=== PATIENT | female | born 1940 | race Caucasian/White ===

== ENCOUNTER 2020-06-23 22:34 | IRF | payer MEDICARE, OTHER, SELFPAY ==
--- NOTE | 2020-06-23 19:37 | ADMGEN ---
This patient, Yodit Campbell, was admitted to [facility] Room 225-02. Patient/family oriented to hospital policies and general routines including ID bracelet, bed and alarms, visiting hours, pain management, procedures, bathroom and other care routines, personal items, smoking policy, room service/diet, and visiting hours. Information on how to activate the Rapid Response Team has been discussed. Patient/Family are encouraged to report perceived risks to care and to ask questions if they do not understand what they are told or what they should do.
[2020-06-24 00:30] VITALS: PULSE 72
[2020-06-24] MEDS: carvediloL 12.5 MG TABLET PO ×3 (00:30→20:25)
[2020-06-24 00:54] LABS: Glucose Point of Care 110 (65-105)
[2020-06-24 04:24] VITALS: BMI 38.5
[2020-06-24 05:07] VITALS: BP 153/55; PULSE 71; RESP 20; TEMP 36.8; O2SAT 98
[2020-06-24 05:42] LABS: Basophils Percent Auto 0.4 % (0.2-1.2); Eosinophils Absolute Auto 0.2 K/mm3 (0-0.3); Eosinophils Percent Auto 1.7 % (0-4.4); Hematocrit 27.9 % (37.0-47.0); Immature Granulocyte Absolute 0.17 K/mm3 (0.00-0.031); Immature Granulocyte Percent A 1.6 % (0-0.5); Lymphocytes Absolute Auto 1.44 K/mm3 (0.9-3.2); Lymphocytes Percent Auto 13.5 % (18.3-44.2); Mean Corpuscular HGB Conc 32.3 g/dl (32-36); Mean Corpuscular Hemoglobin 31.3 pg (26-34); Mean Corpuscular Volume 96.9 fl (80-100); Mean Platelet Volume 9.8 fl (7.4-10.4); Monocytes Percent Auto 9.1 % (2.6-8.5); Neutrophils Absolute Auto 7.9 K/mm3 (1.3-6.7); Neutrophils Percent Auto 73.7 % (45.5-73.1); Platelet Count Result 283 k/mm3 (150-375); Red Blood Count 2.88 M/mm3 (4.2-5.4); Red Cell Distribution Width 12.3 % (11.5-14.5); White Blood Count 10.7 K/mm3 (4.5-10.0)
[2020-06-24 05:45] LABS: Anion Gap 1 mmol/L (8-16); Blood Urea Nitrogen 27 mg/dL (7-17); Calcium 8.4 mg/dL (8.4-10.2); Carbon Dioxide 30 mmol/L (22-30); Chloride 105 mmol/L (98-107); Estimated CRCL calculation 41 ml/min; Estimated Glomerular Filt Rate 43; Glucose 133 mg/dL (65-105); Potassium 4.5 mmol/L (3.4-5.0); Sodium 136 mmol/L (137-145)
[2020-06-24 06:19] LABS: Hemoglobin A1C 6.4 % (<5.7)
[2020-06-24 06:42] LABS: Glucose Point of Care 128 (65-105)
[2020-06-24] MEDS: calcitrioL 0.25 MCG CAPSULE PO (08:10)
[2020-06-24] MEDS: hydrALAZINE HCL 50 MG TABLET PO ×3 (08:11→17:25)
[2020-06-24] MEDS: MULTIVITAMINS THERAPEUTIC TAB (*BKC) 1 TABLET PO (08:11)
[2020-06-24] MEDS: lisinopriL 20 MG TABLET PO (08:11)
[2020-06-24] MEDS: VITAMIN B COMPLEX CAPSULE 1 CAP PO (08:11)
[2020-06-24] MEDS: MAGNESIUM OXIDE 400 MG TABLET PO (08:11)
[2020-06-24] MEDS: TAMSULOSIN HCL 0.4 MG CAPSULE PO (08:11)
[2020-06-24 08:12] VITALS: PULSE 72
[2020-06-24] MEDS: ENOXAPARIN 40 MG/0.4 ML SYRINGE SUB-Q (08:12)
[2020-06-24] MEDS: SENNA/DOCUSATE SODIUM TABLET 1 TAB PO (08:15)
[2020-06-24] MEDS: ACETAMINOPHEN 325 MG TABLET 650 MG PO ×2 (08:23→22:29)
[2020-06-24] MEDS: CITALOPRAM HYDROBROMIDE 20 MG TABLET PO (12:19)
[2020-06-24 12:28] LABS: Glucose Point of Care 184 (65-105)
[2020-06-24 14:00] VITALS: BP 151/59; PULSE 97; RESP 20; TEMP 36.6; O2SAT 97; BMI 38.5
--- NOTE | 2020-06-24 14:04 | RPD ---
INDIVIDUALIZED PLAN OF CARE FOR Yodit Campbell Brief Synthesis of Pre-Admission Screen, Post-Admission Evaluation and Therapy Evaluations: The patient presents to rehab with spinal stenosis of lumbar region with neurogenic claudication. Comorbidities include bilateral lower extremity weakness, degenerative disc disease of lumbar spine, foraminal stenosis of lumbar spine, facet arthropathy of lumbar spine, lumbar spine instability, sacroiliitis, lumbar radiculopathy, synovial cyst of lumbar spine, stenosis of lateral recess of lumbar spine, arthritis, CHF, depression, diabetes mellitus type 2, disease of thyroid gland non-cancerous, dyspnea on exertion, GERD, heart mumur, hyperlipidemia, hypertension, hx lymphoma 06/2019 with s/p radiation completed 08/2019, obesity, JUSTIN with CPAP, pulmonary valve disease, renal insufficiency, post-operative pain, acute blood loss anemia, hyponatremia, hyperkalemia, urinary retention, acute on chronic kidney injury, leukocytosis, dyspnea on exertion, hypotension, poor appetite, hypocalcemia, and orthostatic hypotension. The complexity of the patient's medical management, nursing, and therapy needs require an inpatient rehab hospital stay with a physician-led interdisciplinary team approach. The patient?s needs will be best met in an intensive program vs. at a lower level of care. The patient requires physician services for neurology services, medical oversight, and coordination of care. The patient needs physician monitoring and treatment of postoperative complications of post-operative pain, bilateral lower extremity weakness, hyponatremia, hyperkalemia, urinary retention, acute on chronic kidney injury, leukocytosis, hypocalcemia, acute blood loss anemia, hypotension, poor appetite, dyspnea on exertion, orthostatic hypotension, monitoring for adverse reactions to new medications, and monitoring of infection. The patient requires nursing services for frequent neuro checks, anticoagulation therapy, medication management and education, pressure relief and skin care management, monitoring of labs, bowel and bladder training, diabetes management and education, and fall/safety precautions. Deficits include:ADLs, Balance, Endurance, Family Training/Education, Mobility, Pain Management, ROM, Safety, Strength, and Transfers. Asbestos Brake Lining Finisher Helper/Case Management for: Discharge Planning and Patient/Family Counseling Physical Therapy: 5 days per week for 90 minutes. Treatments may include: Therapeutic Exercise, Gait Training, Neuromuscular Re-education, Transfer Training, Community Reintegration, Bed Mobility, Patient/Family Education, Wheelchair Mobility Group Therapy/Concurrent Therapy Rationales: -Improve attention span during functional activities in a distracted environment. -Enhance problem solving and/or adequate judgment skills during functional activities in a distracted environment. -Promote increased safety awareness in a distracted environment to reduce fall risk with functional tasks, transfers, and ambulation to allow a more safe, self-sufficient return to the home environment. -Improve dynamic balance skills to promote safety and independence with functional activities in a distracted environment for maximum gain. Occupational Therapy: 5 days per week for 90 minutes. Treatments may include: Therapeutic Exercise, Therapeutic Activity, Cognitive Training, Self-Care Transfer Training, Community Reintegration, Home Management, Patient/Family Education, Wheelchair Mobility Training, Energy Conservation Training Group Therapy/Concurrent Therapy Rationales: -Allow therapist to observe and teach generalization and carry-over of skills learned in individual therapy. -Enhance problem solving and sequencing skills during therapeutic activities in a distracted environment. -Promote increased safety awareness in a realistic setting to reduce fall risk with functional tasks due to visual and verbal distractions. -Increase functional level with ADLs,
--- NOTE | 2020-06-24 14:31 | PCNSR ---
On 06/24/20, the student, Meg Mott, provided care and completed [facility] documentation on this patient. I have reviewed the student's documentation and agree with the findings.
[2020-06-24 17:01] LABS: Glucose Point of Care 179 (65-105)
[2020-06-24] MEDS: INSULIN GLARGINE (*BKC) 100 UNITS/ML 25 UNITS SUB-Q (17:26)
--- NOTE | 2020-06-24 17:56 | WPDREHABHP ---
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 patient was seen [id number] at 5:30 a.m. on June 24, 2020. History of the present illness .79 years old right-handed female with past medical history of arthritis, obesity and renal insufficiency presented to [facility] on June 16, 2020 with low back pain and right leg pain. Patient reported experiencing back pain for approximately 6 weeks. The pain on the right side of her lower back radiating into her right buttocks and down the lateral side of the right lower extremity stopping at the ankle. MRI revealed L4 through 5 severe canal stenosis and diffuse disc bulge with focal posterior central disc extrusion in addition to the right-sided synovial cyst and bilateral facet effusion. Neurosurgery was consulted and given the failure of conservative treatment, surgical intervention was recommended. On June 06, 2020 the patient underwent L4-5 oblique lateral interbody fusion, allograft bone morphogenic protein, internal fixation with anterior lumbar plate L4 and L5 posterior fixation with pedicle screw and karishma, L4 total laminectomy, synovial cyst resection . The patient reported improvement in pain after surgery with analgesics. On 06/19 the patient's leg buckled while ambulating with nursing staff who assisted patient to the floor. No injury reported the patient was issued a LS to be used times when mobilizing. Postoperative complications included postoperative pain, bilateral lower extremity weakness, hyponatremia, hyperkalemia, urinary retention, acute on chronic kidney injury, leukocytosis, hypocalcemia, acute blood loss anemia, hypertension, poor appetite, dyspnea on exertion, and Orthostatic hypotension. The patient had an indwelling Choudhury catheter due to urinary retention, which was removed on 06/22, the patient is urinating without difficulty. The patient does have a history of chronic kidney disease and have elevated BUN and creatinine postoperatively, suspected related to acute tubular necrosis, hypertension and urinary retention. Creatinine down to 1.2 on 06/23, package handler signed off for patients to [place]. Patient is awake alert oriented x4 she was discharged to [facility] on enoxaparin 40 mg daily for DVT prophylaxis for duration of 2 weeks the patient has not traveled outside the [place] or had contact with someone who is ill, that as traveled outside the [place] in the past 21 days. The patient has not traveled to an area of the [place] that is experiencing known transmission of the Coronavirus and has not had close personal contact with anyone and that has. The patient does not have fever the patient is not experiencing lower respiratory illness symptom. The patient does, however have sleep apnea requiring CPAP use at baseline. the patient tested negative for COVID on June 13, 2020 therapy was initiated at the acute care facility and the patient was transferred to us from [facility] on June 23, 2020 [facility] Family History Family History Father Acute myocardial infarction Mother Diabetes mellitus Sibling Diabetes mellitus Sibling Acute myocardial infarction Social History Social History Smoking status: Former smoker Tobacco type: cigarettes Alcohol intake: current Drinks per week: 1 Substance use: never Gender identity (if verbalized by the patient): Female Spiritual care concerns: No Meds Home Medications and Allergies Home Medications Medication Instructions Recorded Confirmed Type Adult One Daily Multivitamin 1 tablet PO DAILY 06/23/20 06/23/20 His
[2020-06-24 20:25] VITALS: PULSE 68
[2020-06-24 20:31] VITALS: BP 143/50; PULSE 68; RESP 20; TEMP 36.6; O2SAT 99
[2020-06-24 20:39] LABS: Glucose Point of Care 185 (65-105)
[2020-06-25 05:18] VITALS: BP 142/43; PULSE 59; RESP 20; TEMP 36.6; O2SAT 98
[2020-06-25] MEDS: ALENDRONATE SODIUM 70 MG TABLET PO (05:57)
[2020-06-25 06:41] LABS: Glucose Point of Care 76 (65-105)
[2020-06-25 09:04] VITALS: PULSE 59
[2020-06-25] MEDS: carvediloL 12.5 MG TABLET PO ×2 (09:04→20:54)
[2020-06-25] MEDS: CHOLECALCIFEROL 400 UNITS TABLET (VIT D) 800 UNITS PO (09:04)
[2020-06-25] MEDS: calcitrioL 0.25 MCG CAPSULE PO (09:04)
[2020-06-25] MEDS: lisinopriL 20 MG TABLET PO (09:05)
[2020-06-25] MEDS: CITALOPRAM HYDROBROMIDE 20 MG TABLET PO (09:05)
[2020-06-25] MEDS: ENOXAPARIN 40 MG/0.4 ML SYRINGE SUB-Q (09:05)
[2020-06-25] MEDS: VITAMIN B COMPLEX CAPSULE 1 CAP PO (09:05)
[2020-06-25] MEDS: hydrALAZINE HCL 50 MG TABLET PO ×3 (09:05→18:10)
[2020-06-25] MEDS: MULTIVITAMINS THERAPEUTIC TAB (*BKC) 1 TABLET PO (09:05)
[2020-06-25] MEDS: TAMSULOSIN HCL 0.4 MG CAPSULE PO (09:05)
[2020-06-25] MEDS: MAGNESIUM OXIDE 400 MG TABLET PO (09:05)
[2020-06-25 12:22] LABS: Glucose Point of Care 126 (65-105)
--- NOTE | 2020-06-25 13:54 | PC.NURSE ---
Dr. Elliott's office called and patient needs to be seen for a incision check no later than Jul.02 at 12:40; she had an appointment for , but unable to make that time, so have rescheduled for the Jul.02 appointment.
[2020-06-25 14:00] VITALS: BP 161/89; PULSE 68; RESP 20; TEMP 36.9; O2SAT 95
[2020-06-25 16:44] LABS: Glucose Point of Care 149 (65-105)
--- NOTE | 2020-06-25 17:50 | WPDNEURORHBP ---
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, status post surgical intervention for spinal stenosis involved in the physical therapy and occupational therapy Review of Systems Review of Systems: All systems reviewed & are unremarkable except as noted in HPI and below Functional Status Ambulation Ability Ability to Ambulate 10 Feet: Contact Guard Ability to Ambulate 50 Feet With 2 Turns: Contact Guard Ability to Ambulate 150 Feet: Contact Guard Ambulation Assistive Devices: Walker, Wheeled Transfers Ability Ability to Transfer In/Out of Chair: Moderate Assistance X 1 Exam Narrative: Exam Narrative: on examination awake alert in no acute distress,, heart regular, lungs clear, abdomen is soft, normal bowel sounds, lungs clear ,heart regular with no murmur ,neuro essentially unchanged Objective Data Vital Signs Vital Signs: Vital Signs - 24 hr 06/24/20 20:25 06/24/20 20:31 06/25/20 05:18 Temperature 36.6 C 36.6 C Pulse Rate 68 68 59 L Respiratory Rate 20 20 Blood Pressure 143/50 H 142/43 H Pulse Oximetry 99 98 06/25/20 09:04 06/25/20 14:00 Temperature 36.9 C Pulse Rate 59 L 68 Respiratory Rate 20 Blood Pressure 161/89 H Pulse Oximetry 95 Intake/Output Intake/Output: Intake & Output 06/22/20 06/23/20 06/24/20 06/25/20 23:59 23:59 23:59 23:59 Intake Total 720 480 Balance 720 480 Meds/Results Medications: Active Medications Generic Name Dose Route Start Last Admin Trade Name Freq PRN Reason Stop Dose Admin Acetaminophen 650 mg 06/24/20 00:20 06/24/20 22:29 Acetaminophen 325 Mg Tablet PO 650 mg Q6H PRN Administration Mild Pain (1-3) or Fever Hydrocodone Bitart/Acetaminophen 1 tab 06/23/20 22:40 Hydrocodone/Acetaminophen (*Crx) 5-325 Mg Tablet PO Q4H PRN Pain (Scale Score 4-6) Hydrocodone Bitart/Acetaminophen 2 tab 06/23/20 22:40 Hydrocodone/Acetaminophen (*Crx) 5-325 Mg Tablet PO Q4H PRN Pain (Scale Score 7-10) Alendronate Sodium 70 mg 06/25/20 06:30 06/25/20 05:57 Alendronate Sodium 70 Mg Tablet PO 70 mg We@0630 CHRISTINE Administration Calcitriol 0.25 mcg 06/24/20 09:00 06/25/20 09:04 Calcitriol 0.25 Mcg Capsule PO 0.25 mcg DAILY CHRISTINE Administration Carvedilol 12.5 mg 06/23/20 23:10 06/25/20 09:04 Carvedilol 12.5 Mg Tablet PO 12.5 mg Q12HR CHRISTINE Administration Citalopram Hydrobromide 20 mg 06/24/20 09:00 06/25/20 09:05 Citalopram Hydrobromide 20 Mg Tablet PO 20 mg DAILY CHRISTINE Administration Dextrose 12.5 gm 06/23/20 22:48 Dextrose 50% 25 Gm/50 Ml Syringe IV PUSH PRN PRN Hypoglycemia Protocol Diazepam 5 mg 06/23/20 22:40 Diazepam (*Crx) 5 Mg Tablet PO 07/23/20 22:41 TID PRN Muscle Spasm Enoxaparin Sodium 40 mg 06/24/20 09:00 06/25/20 09:05 Enoxaparin 40 Mg/0.4 Ml Syringe SUB-Q 40 mg DAILY CHRISTINE Administration Glucagon 1 mg 06/23/20 22:48 Glucagon For Inj 1 Mg Vial IM PRN PRN Hypoglycemia Protocol Glucose 15 gm 06/23/20 22:48 Glucose Oral Gel 15 Gm Of Glucse In 37.5 Gm Tube PO PRN PRN Hypoglycemia Protocol Hydralazine HCl 50 mg 06/24/20 09:00 06/25/20 12:18 Hydralazine Hcl 50 Mg Tablet PO 07/24/20 09:01 50 mg TID CHRISTINE Administration Dextrose 1,000 mls @ 100 mls/hr 06/23/20 22:48 Dextrose 5% 1,000 Ml IVPB PRN PRN Hypoglycemia Protocol Insulin Glargine 25 units 06/24/20 18:00 06/24/20 17:26 Insulin Glargine (*Bkc) 100 Units/Ml SUB-Q 25 units QPM CHRISTINE Administration Lisinopril 20 mg 06/24/20 09:00 06/25/20 09:05 Lisinopril 20 Mg Tablet PO 20 mg DAILY CHRISTINE Administration Magnesium Oxide 400 mg 06/24/20 09:00 06/25/20 09:05 Magnesium Oxide 400 Mg Tablet PO 400 mg DAILY CHRISTINE Administration Multivitamins Therapeutic 1 tablet 06/24/20 09:00 06/25/20 09:05 Multivitamins Therapeuti
[2020-06-25] MEDS: INSULIN GLARGINE (*BKC) 100 UNITS/ML 25 UNITS SUB-Q (18:10)
[2020-06-25 20:54] VITALS: PULSE 66
[2020-06-25] MEDS: ACETAMINOPHEN 325 MG TABLET 650 MG PO (20:55)
[2020-06-25 22:00] VITALS: BP 154/65; PULSE 66; RESP 18; TEMP 36.7; O2SAT 96
[2020-06-25 22:31] LABS: Glucose Point of Care 200 (65-105)
[2020-06-26 06:00] VITALS: BP 152/63; PULSE 65; RESP 18; TEMP 36.3; O2SAT 100
[2020-06-26 06:47] LABS: Glucose Point of Care 84 (65-105)
[2020-06-26 09:36] VITALS: PULSE 65
[2020-06-26] MEDS: calcitrioL 0.25 MCG CAPSULE PO (09:36)
[2020-06-26] MEDS: carvediloL 12.5 MG TABLET PO ×2 (09:36→20:41)
[2020-06-26] MEDS: VITAMIN B COMPLEX CAPSULE 1 CAP PO (09:37)
[2020-06-26] MEDS: ENOXAPARIN 40 MG/0.4 ML SYRINGE SUB-Q (09:37)
[2020-06-26] MEDS: hydrALAZINE HCL 50 MG TABLET PO ×3 (09:37→18:06)
[2020-06-26] MEDS: CITALOPRAM HYDROBROMIDE 20 MG TABLET PO (09:37)
[2020-06-26] MEDS: CHOLECALCIFEROL 400 UNITS TABLET (VIT D) 800 UNITS PO (09:37)
[2020-06-26] MEDS: TAMSULOSIN HCL 0.4 MG CAPSULE PO (09:38)
[2020-06-26] MEDS: lisinopriL 20 MG TABLET PO (09:38)
[2020-06-26] MEDS: MULTIVITAMINS THERAPEUTIC TAB (*BKC) 1 TABLET PO (09:38)
[2020-06-26] MEDS: MAGNESIUM OXIDE 400 MG TABLET PO (09:38)
[2020-06-26 11:56] LABS: Glucose Point of Care 127 (65-105)
[2020-06-26 14:00] VITALS: BP 147/50; PULSE 70; RESP 18; TEMP 36.9; O2SAT 95
--- NOTE | 2020-06-26 16:13 | PCPTNOTE ---
Yodit Campbell was evaluated for a wheeled walker on 06/26/2020 by this physical therapist laboratory chemical assistant. The wheeled walker will resolve patient's mobility limitations and will be used for ADL's within the home. The patient can safely use the wheeled walker. ?The wheeled walker will resolve the patient?s mobility deficits, including decreased strength, endurance, balance. Bertha Zuniga, GHOST WRITER 06/26/20 16:14
[2020-06-26 17:27] LABS: Glucose Point of Care 170 (65-105)
[2020-06-26] MEDS: INSULIN GLARGINE (*BKC) 100 UNITS/ML 25 UNITS SUB-Q (18:05)
[2020-06-26 20:41] VITALS: PULSE 88
[2020-06-26] MEDS: ACETAMINOPHEN 325 MG TABLET 650 MG PO (20:41)
[2020-06-26 21:05] VITALS: BP 148/78; PULSE 88; RESP 18; TEMP 36.8; O2SAT 97
[2020-06-26 22:32] LABS: Glucose Point of Care 149 (65-105)
[2020-06-27] VITALS (7 sets, daily range): BP systolic 125–143; BP diastolic 47–63; PULSE 63–89; RESP 19–20; TEMP 36.4–36.9; O2SAT 91–99
[2020-06-27 06:54] LABS: Glucose Point of Care 70 (65-105)
[2020-06-27 06:54] LABS: Glucose Point of Care 99 (65-105)
[2020-06-27] MEDS: carvediloL 12.5 MG TABLET PO ×2 (09:38→19:33)
[2020-06-27] MEDS: calcitrioL 0.25 MCG CAPSULE PO (09:38)
[2020-06-27] MEDS: CHOLECALCIFEROL 400 UNITS TABLET (VIT D) 800 UNITS PO (09:38)
[2020-06-27] MEDS: CITALOPRAM HYDROBROMIDE 20 MG TABLET PO (09:38)
[2020-06-27] MEDS: VITAMIN B COMPLEX CAPSULE 1 CAP PO (09:39)
[2020-06-27] MEDS: hydrALAZINE HCL 50 MG TABLET PO ×3 (09:39→17:05)
[2020-06-27] MEDS: TAMSULOSIN HCL 0.4 MG CAPSULE PO (09:39)
[2020-06-27] MEDS: MAGNESIUM OXIDE 400 MG TABLET PO (09:39)
[2020-06-27] MEDS: ENOXAPARIN 40 MG/0.4 ML SYRINGE SUB-Q (09:39)
[2020-06-27] MEDS: lisinopriL 20 MG TABLET PO (09:39)
[2020-06-27] MEDS: MULTIVITAMINS THERAPEUTIC TAB (*BKC) 1 TABLET PO (09:39)
[2020-06-27 12:20] LABS: Glucose Point of Care 93 (65-105)
--- NOTE | 2020-06-27 13:29 | WPDNEURORHBP ---
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 She has involving the physical therapy able to ambulate up to 150ft with contact guard using a wheeled walker able to transfer in and out of chair with moderate assistance of 1 Review of Systems Review of Systems: All systems reviewed & are unremarkable except as noted in HPI and below ROS unobtainable: Yes unobtainable due to endotracheal tube Functional Status Ambulation Ability Ability to Ambulate 10 Feet: Standby Assistance Ability to Ambulate 50 Feet With 2 Turns: Standby Assistance Ability to Ambulate 150 Feet: Standby Assistance Ambulation Assistive Devices: Walker, Wheeled Transfers Ability Ability to Transfer In/Out of Chair: Standby Assistance Exam Narrative: Exam Narrative: on examination she is awake alert has no specific complaints ear nose throat examination normal mucous membranes are moist obvious drainage from the nose heart regular with no murmur lungs clear to auscultation no rhonchi or crepitations abdomen is soft normal bowel sounds nontender neurological examination unchanged Objective Data Vital Signs Vital Signs: Vital Signs - 24 hr 06/26/20 14:00 06/26/20 20:41 06/26/20 21:05 Temperature 36.9 C 36.8 C Pulse Rate 70 88 88 Respiratory Rate 18 18 Blood Pressure 147/50 H 148/78 H Pulse Oximetry 95 97 06/27/20 05:14 06/27/20 09:38 Temperature 36.4 C L Pulse Rate 63 63 Respiratory Rate 20 Blood Pressure 125/47 L Pulse Oximetry 99 Intake/Output Intake/Output: Intake & Output 06/24/20 06/25/20 06/26/20 06/27/20 23:59 23:59 23:59 23:59 Intake Total 720 720 960 240 Balance 720 720 960 240 Meds/Results Medications: Active Medications Generic Name Dose Route Start Last Admin Trade Name Freq PRN Reason Stop Dose Admin Acetaminophen 650 mg 06/24/20 00:20 06/26/20 20:41 Acetaminophen 325 Mg Tablet PO 650 mg Q6H PRN Administration Mild Pain (1-3) or Fever Hydrocodone Bitart/Acetaminophen 1 tab 06/23/20 22:40 Hydrocodone/Acetaminophen (*Crx) 5-325 Mg Tablet PO Q4H PRN Pain (Scale Score 4-6) Hydrocodone Bitart/Acetaminophen 2 tab 06/23/20 22:40 Hydrocodone/Acetaminophen (*Crx) 5-325 Mg Tablet PO Q4H PRN Pain (Scale Score 7-10) Alendronate Sodium 70 mg 06/25/20 06:30 06/25/20 05:57 Alendronate Sodium 70 Mg Tablet PO 70 mg We@0630 CHRISTINE Administration Calcitriol 0.25 mcg 06/24/20 09:00 06/27/20 09:38 Calcitriol 0.25 Mcg Capsule PO 0.25 mcg DAILY CHRISTINE Administration Carvedilol 12.5 mg 06/23/20 23:10 06/27/20 09:38 Carvedilol 12.5 Mg Tablet PO 12.5 mg Q12HR CHRISTINE Administration Citalopram Hydrobromide 20 mg 06/24/20 09:00 06/27/20 09:38 Citalopram Hydrobromide 20 Mg Tablet PO 20 mg DAILY CHRISTINE Administration Dextrose 12.5 gm 06/23/20 22:48 Dextrose 50% 25 Gm/50 Ml Syringe IV PUSH PRN PRN Hypoglycemia Protocol Diazepam 5 mg 06/23/20 22:40 Diazepam (*Crx) 5 Mg Tablet PO 07/23/20 22:41 TID PRN Muscle Spasm Enoxaparin Sodium 40 mg 06/24/20 09:00 06/27/20 09:39 Enoxaparin 40 Mg/0.4 Ml Syringe SUB-Q 40 mg DAILY CHRISTINE Administration Glucagon 1 mg 06/23/20 22:48 Glucagon For Inj 1 Mg Vial IM PRN PRN Hypoglycemia Protocol Glucose 15 gm 06/23/20 22:48 Glucose Oral Gel 15 Gm Of Glucse In 37.5 Gm Tube PO PRN PRN Hypoglycemia Protocol Hydralazine HCl 50 mg 06/24/20 09:00 06/27/20 09:39 Hydralazine Hcl 50 Mg Tablet PO 07/24/20 09:01 50 mg TID CHRISTINE Administration Dextrose 1,000 mls @ 100 mls/hr 06/23/20 22:48 Dextrose 5% 1,000 Ml IVPB PRN PRN Hypoglycemia Protocol Insulin Glargine 20 units 06/27/20 18:00 Insulin Glargine (*Bkc) 100 Units/Ml SUB-Q
[2020-06-27] MEDS: PANTOPRAZOLE SOD SESQUIHYDRATE 20 MG TAB PO (17:03)
[2020-06-27 17:14] LABS: Glucose Point of Care 110 (65-105)
[2020-06-27] MEDS: INSULIN GLARGINE (*BKC) 100 UNITS/ML 20 UNITS SUB-Q (18:06)
[2020-06-27] MEDS: ACETAMINOPHEN 325 MG TABLET 650 MG PO (19:32)
[2020-06-27 21:07] LABS: Glucose Point of Care 143 (65-105)
[2020-06-28] MEDS: ACETAMINOPHEN 325 MG TABLET 650 MG PO ×2 (05:52→18:26)
[2020-06-28 06:00] VITALS: BP 128/61; PULSE 65; RESP 20; TEMP 36.5; O2SAT 98
[2020-06-28 06:29] LABS: Glucose Point of Care 67 (65-105)
[2020-06-28 07:24] LABS: Glucose Point of Care 97 (65-105)
[2020-06-28 09:24] VITALS: PULSE 65
[2020-06-28] MEDS: carvediloL 12.5 MG TABLET PO ×2 (09:24→20:08)
[2020-06-28] MEDS: calcitrioL 0.25 MCG CAPSULE PO (09:24)
[2020-06-28] MEDS: CHOLECALCIFEROL 400 UNITS TABLET (VIT D) 800 UNITS PO (09:24)
[2020-06-28] MEDS: MAGNESIUM OXIDE 400 MG TABLET PO (09:25)
[2020-06-28] MEDS: PANTOPRAZOLE SOD SESQUIHYDRATE 20 MG TAB PO (09:25)
[2020-06-28] MEDS: CITALOPRAM HYDROBROMIDE 20 MG TABLET PO (09:25)
[2020-06-28] MEDS: lisinopriL 20 MG TABLET PO (09:25)
[2020-06-28] MEDS: TAMSULOSIN HCL 0.4 MG CAPSULE PO (09:25)
[2020-06-28] MEDS: MULTIVITAMINS THERAPEUTIC TAB (*BKC) 1 TABLET PO (09:25)
[2020-06-28] MEDS: hydrALAZINE HCL 50 MG TABLET PO ×3 (09:26→17:16)
[2020-06-28] MEDS: VITAMIN B COMPLEX CAPSULE 1 CAP PO (09:26)
[2020-06-28] MEDS: ENOXAPARIN 40 MG/0.4 ML SYRINGE SUB-Q (09:26)
[2020-06-28 12:08] LABS: Glucose Point of Care 92 (65-105)
[2020-06-28 14:00] VITALS: BP 141/57; PULSE 80; RESP 20; TEMP 36.9; O2SAT 95
[2020-06-28 17:25] LABS: Glucose Point of Care 103 (65-105)
[2020-06-28] MEDS: INSULIN GLARGINE (*BKC) 100 UNITS/ML 20 UNITS SUB-Q (18:26)
[2020-06-28 20:08] VITALS: PULSE 80
[2020-06-28 20:53] LABS: Glucose Point of Care 155 (65-105)
[2020-06-28 22:00] VITALS: BP 158/70; PULSE 71; RESP 17; TEMP 36.4; O2SAT 99
[2020-06-29] VITALS (7 sets, daily range): BP systolic 144–155; BP diastolic 55–89; PULSE 64–73; RESP 19–20; TEMP 36.1–37.1; O2SAT 95–98
[2020-06-29] MEDS: ACETAMINOPHEN 325 MG TABLET 650 MG PO ×2 (00:51→20:18)
--- NOTE | 2020-06-29 01:08 | PC.NURSE ---
Daylight Savings Time For Daylight Savings Time Ending in the Fall - Clocks are moved back. For Daylight Savings Time Beginning in the Spring - Clocks are moved ahead. For [facility], the time of change occurs at 0200 hrs. Time is taken from the artillery or naval gunfire observer. This entry on the patient's chart recognizes the change in time reflected during documentation. Example: 2 entries for vital signs may be charted for 0200 hrs.
[2020-06-29 06:59] LABS: Glucose Point of Care 88 (65-105)
[2020-06-29] MEDS: calcitrioL 0.25 MCG CAPSULE PO (08:25)
[2020-06-29] MEDS: carvediloL 12.5 MG TABLET PO ×2 (08:25→20:14)
[2020-06-29] MEDS: lisinopriL 20 MG TABLET PO (08:26)
[2020-06-29] MEDS: hydrALAZINE HCL 50 MG TABLET PO ×3 (08:26→16:38)
[2020-06-29] MEDS: CITALOPRAM HYDROBROMIDE 20 MG TABLET PO (08:26)
[2020-06-29] MEDS: CHOLECALCIFEROL 400 UNITS TABLET (VIT D) 800 UNITS PO (08:26)
[2020-06-29] MEDS: ENOXAPARIN 40 MG/0.4 ML SYRINGE SUB-Q (08:26)
[2020-06-29] MEDS: PANTOPRAZOLE SOD SESQUIHYDRATE 20 MG TAB PO (08:27)
[2020-06-29] MEDS: VITAMIN B COMPLEX CAPSULE 1 CAP PO (08:27)
[2020-06-29] MEDS: TAMSULOSIN HCL 0.4 MG CAPSULE PO (08:27)
[2020-06-29] MEDS: MAGNESIUM OXIDE 400 MG TABLET PO (08:27)
[2020-06-29] MEDS: MULTIVITAMINS THERAPEUTIC TAB (*BKC) 1 TABLET PO (08:27)
--- NOTE | 2020-06-29 11:41 | WPDNEURORHBP ---
Subjective Date/time seen: 06/29/20 11:41 79 years old lady admitted to the rehab with the diagnosis of his spinal cord dysfunction that is nontraumatic in nature. 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 She has undergone surgery and involving the physical therapy at present she is able to ambulate up to 150ft with standby assistance and able to transfer in and out of chair is standby assistance Review of Systems Review of Systems: All systems reviewed & are unremarkable except as noted in HPI and below Functional Status Ambulation Ability Ability to Ambulate 10 Feet: Standby Assistance Ability to Ambulate 50 Feet With 2 Turns: Standby Assistance Ability to Ambulate 150 Feet: Standby Assistance Ambulation Assistive Devices: Walker, Wheeled Transfers Ability Ability to Transfer In/Out of Chair: Standby Assistance Exam Narrative: Exam Narrative: on examination today she is awake alert has no specific complaints, ear nose throat examination normal, neck is supple ,heart regular, lungs clear,, abdomen soft, nontender .neuro examination unchanged Objective Data Vital Signs Vital Signs: Vital Signs - 24 hr 06/28/20 14:00 06/28/20 20:08 06/28/20 22:00 Temperature 36.9 C 36.4 C Pulse Rate 80 80 71 Respiratory Rate 20 17 Blood Pressure 141/57 H 158/70 H Pulse Oximetry 95 99 06/29/20 06:00 06/29/20 08:25 Temperature 36.1 C L Pulse Rate 64 64 Respiratory Rate 20 Blood Pressure 144/55 H Pulse Oximetry 98 Intake/Output Intake/Output: Intake & Output 06/26/20 06/27/20 06/28/20 06/29/20 23:59 23:59 23:59 22:59 Intake Total 960 720 600 240 Balance 960 720 600 240 Meds/Results Medications: Active Medications Generic Name Dose Route Start Last Admin Trade Name Freq PRN Reason Stop Dose Admin Acetaminophen 650 mg 06/24/20 00:20 06/29/20 00:51 Acetaminophen 325 Mg Tablet PO 650 mg Q6H PRN Administration Mild Pain (1-3) or Fever Hydrocodone Bitart/Acetaminophen 1 tab 06/23/20 22:40 Hydrocodone/Acetaminophen (*Crx) 5-325 Mg Tablet PO Q4H PRN Pain (Scale Score 4-6) Hydrocodone Bitart/Acetaminophen 2 tab 06/23/20 22:40 Hydrocodone/Acetaminophen (*Crx) 5-325 Mg Tablet PO Q4H PRN Pain (Scale Score 7-10) Alendronate Sodium 70 mg 06/25/20 06:30 06/25/20 05:57 Alendronate Sodium 70 Mg Tablet PO 70 mg We@0630 CHRISTINE Administration Calcitriol 0.25 mcg 06/24/20 09:00 06/29/20 08:25 Calcitriol 0.25 Mcg Capsule PO 0.25 mcg DAILY CHRISTINE Administration Carvedilol 12.5 mg 06/23/20 23:10 06/29/20 08:25 Carvedilol 12.5 Mg Tablet PO 12.5 mg Q12HR CHRISTINE Administration Citalopram Hydrobromide 20 mg 06/24/20 09:00 06/29/20 08:26 Citalopram Hydrobromide 20 Mg Tablet PO 20 mg DAILY CHRISTINE Administration Dextrose 12.5 gm 06/23/20 22:48 Dextrose 50% 25 Gm/50 Ml Syringe IV PUSH PRN PRN Hypoglycemia Protocol Diazepam 5 mg 06/23/20 22:40 Diazepam (*Crx) 5 Mg Tablet PO 07/23/20 22:41 TID PRN Muscle Spasm Enoxaparin Sodium 40 mg 06/24/20 09:00 06/29/20 08:26 Enoxaparin 40 Mg/0.4 Ml Syringe SUB-Q 40 mg DAILY CHRISTINE Administration Glucagon 1 mg 06/23/20 22:48 Glucagon For Inj 1 Mg Vial IM PRN PRN Hypoglycemia Protocol Glucose 15 gm 06/23/20 22:48 Glucose Oral Gel 15 Gm Of Glucse In 37.5 Gm Tube PO PRN PRN Hypoglycemia Protocol Hydralazine HCl 50 mg 06/24/20 09:00 06/29/20 08:26 Hydralazine Hcl 50 Mg Tablet PO 07/24/20 09:01 50 mg TID CHRISTINE Administration Dextrose 1,000 mls @ 100 mls/hr 06/23/20 22:48 Dextrose 5% 1,000 Ml IVPB PRN PRN Hypoglycemia Protocol Insulin Glargine 20 units 06/27/20 18:00 06/28/20 18:26 Insulin Glargine (*Bkc) 100 Units/Ml SUB-Q 20 units QPM CHRISTINE Administration Lisinopril 20 mg 06/24/20 09:00 06/29/20 08:26 Lisinopril 20 Mg Tablet PO 2
[2020-06-29 12:39] LABS: Glucose Point of Care 101 (65-105)
[2020-06-29 17:23] LABS: Glucose Point of Care 174 (65-105)
[2020-06-29] MEDS: INSULIN GLARGINE (*BKC) 100 UNITS/ML 20 UNITS SUB-Q (19:02)
--- NOTE | 2020-06-29 19:19 | PC.NURSE ---
Coverlet dressings changed to back incisions and rt anterior hip area, no drainage noted, healing and well approximated.
[2020-06-29 22:31] LABS: Glucose Point of Care 121 (65-105)
[2020-06-30 06:00] VITALS: BP 152/54; PULSE 65; RESP 19; TEMP 36.3; O2SAT 97
[2020-06-30 06:53] LABS: Glucose Point of Care 114 (65-105)
[2020-06-30 09:21] VITALS: PULSE 65
[2020-06-30] MEDS: calcitrioL 0.25 MCG CAPSULE PO (09:21)
[2020-06-30] MEDS: ENOXAPARIN 40 MG/0.4 ML SYRINGE SUB-Q (09:21)
[2020-06-30] MEDS: CITALOPRAM HYDROBROMIDE 20 MG TABLET PO (09:21)
[2020-06-30] MEDS: carvediloL 12.5 MG TABLET PO ×2 (09:21→20:56)
[2020-06-30] MEDS: CHOLECALCIFEROL 400 UNITS TABLET (VIT D) 800 UNITS PO (09:21)
[2020-06-30] MEDS: hydrALAZINE HCL 50 MG TABLET PO ×3 (09:21→17:27)
[2020-06-30] MEDS: MULTIVITAMINS THERAPEUTIC TAB (*BKC) 1 TABLET PO (09:22)
[2020-06-30] MEDS: MAGNESIUM OXIDE 400 MG TABLET PO (09:22)
[2020-06-30] MEDS: lisinopriL 20 MG TABLET PO (09:22)
[2020-06-30] MEDS: PANTOPRAZOLE SOD SESQUIHYDRATE 20 MG TAB PO (09:22)
[2020-06-30] MEDS: TAMSULOSIN HCL 0.4 MG CAPSULE PO (09:22)
[2020-06-30] MEDS: VITAMIN B COMPLEX CAPSULE 1 CAP PO (09:23)
[2020-06-30 11:48] LABS: Glucose Point of Care 114 (65-105)
[2020-06-30 14:00] VITALS: BP 144/93; PULSE 64; RESP 18; TEMP 36.6; O2SAT 96
[2020-06-30 16:46] LABS: Glucose Point of Care 133 (65-105)
[2020-06-30] MEDS: INSULIN GLARGINE (*BKC) 100 UNITS/ML 20 UNITS SUB-Q (17:26)
[2020-06-30 20:00] VITALS: O2SAT 95
[2020-06-30 20:54] LABS: Glucose Point of Care 157 (65-105)
[2020-06-30 20:56] VITALS: PULSE 64
[2020-06-30] MEDS: ACETAMINOPHEN 325 MG TABLET 650 MG PO (20:56)
[2020-06-30 21:07] VITALS: BP 141/63; PULSE 86; RESP 18; TEMP 36.6; O2SAT 94
[2020-07-01 05:45] VITALS: BP 133/47; PULSE 62; RESP 20; TEMP 36.3; O2SAT 100
[2020-07-01 05:51] LABS: Basophils Percent Auto 0.5 % (0.2-1.2); Eosinophils Absolute Auto 0.2 K/mm3 (0-0.3); Eosinophils Percent Auto 1.9 % (0-4.4); Hematocrit 27.2 % (37.0-47.0); Hemoglobin 8.7 g/dL (12.0-15.0); Immature Granulocyte Absolute 0.08 K/mm3 (0.00-0.031); Lymphocytes Absolute Auto 1.28 K/mm3 (0.9-3.2); Mean Corpuscular Hemoglobin 31.1 pg (26-34); Mean Corpuscular Volume 97.1 fl (80-100); Mean Platelet Volume 9.8 fl (7.4-10.4); Monocytes Absolute Auto 0.7 K/mm3 (0.1-0.6); Monocytes Percent Auto 8.6 % (2.6-8.5); Neutrophils Absolute Auto 5.8 K/mm3 (1.3-6.7); Platelet Count Result 255 k/mm3 (150-375); Red Cell Distribution Width 12.9 % (11.5-14.5)
[2020-07-01 06:01] LABS: Anion Gap 3 mmol/L (8-16); Blood Urea Nitrogen 28 mg/dL (7-17); Calcium 8.6 mg/dL (8.4-10.2); Carbon Dioxide 29 mmol/L (22-30); Chloride 106 mmol/L (98-107); Estimated CRCL calculation 34 ml/min; Estimated Glomerular Filt Rate 34; Glucose 88 mg/dL (65-105); Potassium 4.1 mmol/L (3.4-5.0); Sodium 138 mmol/L (137-145)
[2020-07-01 06:42] LABS: Glucose Point of Care 82 (65-105)
[2020-07-01 08:24] VITALS: PULSE 62
[2020-07-01] MEDS: CHOLECALCIFEROL 400 UNITS TABLET (VIT D) 800 UNITS PO (08:24)
[2020-07-01] MEDS: calcitrioL 0.25 MCG CAPSULE PO (08:24)
[2020-07-01] MEDS: ENOXAPARIN 40 MG/0.4 ML SYRINGE SUB-Q (08:24)
[2020-07-01] MEDS: carvediloL 12.5 MG TABLET PO ×2 (08:24→20:32)
[2020-07-01] MEDS: MAGNESIUM OXIDE 400 MG TABLET PO (08:25)
[2020-07-01] MEDS: MULTIVITAMINS THERAPEUTIC TAB (*BKC) 1 TABLET PO (08:25)
[2020-07-01] MEDS: hydrALAZINE HCL 50 MG TABLET PO ×3 (08:25→18:03)
[2020-07-01] MEDS: lisinopriL 20 MG TABLET PO (08:25)
[2020-07-01] MEDS: CITALOPRAM HYDROBROMIDE 20 MG TABLET PO (08:25)
[2020-07-01] MEDS: TAMSULOSIN HCL 0.4 MG CAPSULE PO (08:26)
[2020-07-01] MEDS: VITAMIN B COMPLEX CAPSULE 1 CAP PO (08:26)
[2020-07-01] MEDS: PANTOPRAZOLE SOD SESQUIHYDRATE 20 MG TAB PO (08:26)
[2020-07-01 12:09] LABS: Glucose Point of Care 106 (65-105)
--- NOTE | 2020-07-01 13:14 | PCDIET ---
Nutrition Follow-Up Complete: No nutrition diagnosis at this time. Nutrition Goal: Pt will continue to consume 100% of meals and abide by diabetic diet pattern. Goal met. Patient consuming 75-100% of most meals on diabetic diet. Reports good appetite and is eager for discharge tomorrow. Last recorded weight is 105 kg. Recommend obtaining new weight. Bowel Motility: Last documented BM on 06/30/20. Labs Reviewed: Hgb (8.7), Hct (27.2), BUN (28), Cr (1.5) Meds Noted: Rocaltrol, Coreg, Hydralazine, Lantus, Lisinopril, Mag-Ox, MVI, Protonix, Vitamin D, Vitamin B Complex Additional Notes: Incision to lower back. No documented pressure ulcers. Will continue to monitor with same goal. Nutrition Monitoring and Evaluation: Follow up in 7 days.
[2020-07-01 14:00] VITALS: BP 144/59; PULSE 68; RESP 18; TEMP 36.8; O2SAT 95
[2020-07-01 16:48] LABS: Glucose Point of Care 150 (65-105)
[2020-07-01] MEDS: INSULIN GLARGINE (*BKC) 100 UNITS/ML 20 UNITS SUB-Q (18:03)
[2020-07-01 20:00] VITALS: PULSE 87; RESP 20; O2SAT 98
[2020-07-01] MEDS: ACETAMINOPHEN 325 MG TABLET 650 MG PO (20:31)
[2020-07-01 20:32] VITALS: PULSE 70
[2020-07-01 21:54] LABS: Glucose Point of Care 137 (65-105)
[2020-07-01 22:00] VITALS: BP 165/74; PULSE 87; RESP 20; TEMP 36.2; O2SAT 98
[2020-07-02] MEDS: ALENDRONATE SODIUM 70 MG TABLET PO (05:26)
[2020-07-02 05:47] LABS: Glucose Point of Care 87 (65-105)
[2020-07-02 06:00] VITALS: BP 151/49; PULSE 66; RESP 19; TEMP 36.4; O2SAT 97
[2020-07-02 08:00] VITALS: PULSE 66; RESP 19; O2SAT 97
[2020-07-02] MEDS: VITAMIN B COMPLEX CAPSULE 1 CAP PO (08:34)
[2020-07-02] MEDS: MAGNESIUM OXIDE 400 MG TABLET PO (08:34)
[2020-07-02] MEDS: CITALOPRAM HYDROBROMIDE 20 MG TABLET PO (08:34)
[2020-07-02] MEDS: MULTIVITAMINS THERAPEUTIC TAB (*BKC) 1 TABLET PO (08:34)
[2020-07-02] MEDS: PANTOPRAZOLE SOD SESQUIHYDRATE 20 MG TAB PO (08:34)
[2020-07-02] MEDS: TAMSULOSIN HCL 0.4 MG CAPSULE PO (08:34)
[2020-07-02] MEDS: calcitrioL 0.25 MCG CAPSULE PO (08:34)
[2020-07-02 08:35] VITALS: PULSE 66
[2020-07-02] MEDS: ENOXAPARIN 40 MG/0.4 ML SYRINGE SUB-Q (08:35)
[2020-07-02] MEDS: CHOLECALCIFEROL 400 UNITS TABLET (VIT D) 800 UNITS PO (08:35)
[2020-07-02] MEDS: lisinopriL 20 MG TABLET PO (08:35)
[2020-07-02] MEDS: hydrALAZINE HCL 50 MG TABLET PO (08:35)
[2020-07-02] MEDS: carvediloL 12.5 MG TABLET PO (08:35)
--- NOTE | 2020-07-02 11:50 | WPDNEUROPN ---
Progress Note: A&P Assessment and Plan (1) Lumbar stenosis with neurogenic claudication: Code(s): M48.062 - Spinal stenosis, lumbar region with neurogenic claudication Status: Acute Additional Plan stable being discharged Exam Narrative: Exam Narrative: examination revealed her to be awake alert cooperative in no obvious acute distress ear nose throat examination was normal mucous membranes were moist with no rhinorrhea heart was regular with no murmur lungs were clear abdomen is soft nontender normal bowel sounds and neurological examination was unchanged Objective Data Vital Signs Vital Signs: Vital Signs - 24 hr 07/01/20 14:00 07/01/20 20:00 07/01/20 20:32 Temperature 36.8 C Pulse Rate 68 87 70 Respiratory Rate 18 20 Blood Pressure 144/59 H Pulse Oximetry 95 98 07/01/20 22:00 07/02/20 06:00 07/02/20 08:00 Temperature 36.2 C L 36.4 C L Pulse Rate 87 66 66 Respiratory Rate 20 19 19 Blood Pressure 165/74 H 151/49 H Pulse Oximetry 98 97 97 07/02/20 08:35 Temperature Pulse Rate 66 Respiratory Rate Blood Pressure Pulse Oximetry Intake/Output Intake/Output: Intake & Output 06/29/20 06/30/20 07/01/20 07/02/20 23:59 23:59 23:59 23:59 Intake Total 1440 1080 240 Balance 1440 1080 240 Meds/Results Medications: Active Medications Generic Name Dose Route Start Last Admin Trade Name Freq PRN Reason Stop Dose Admin Acetaminophen 650 mg 06/24/20 00:20 07/01/20 20:31 Acetaminophen 325 Mg Tablet PO 650 mg Q6H PRN Administration Mild Pain (1-3) or Fever Hydrocodone Bitart/Acetaminophen 1 tab 06/23/20 22:40 Hydrocodone/Acetaminophen (*Crx) 5-325 Mg Tablet PO Q4H PRN Pain (Scale Score 4-6) Hydrocodone Bitart/Acetaminophen 2 tab 06/23/20 22:40 Hydrocodone/Acetaminophen (*Crx) 5-325 Mg Tablet PO Q4H PRN Pain (Scale Score 7-10) Alendronate Sodium 70 mg 06/25/20 06:30 07/02/20 05:26 Alendronate Sodium 70 Mg Tablet PO 70 mg We@0630 CHRISTINE Administration Calcitriol 0.25 mcg 06/24/20 09:00 07/02/20 08:34 Calcitriol 0.25 Mcg Capsule PO 0.25 mcg DAILY CHRISTINE Administration Carvedilol 12.5 mg 06/23/20 23:10 07/02/20 08:35 Carvedilol 12.5 Mg Tablet PO 12.5 mg Q12HR CHRISTINE Administration Citalopram Hydrobromide 20 mg 06/24/20 09:00 07/02/20 08:34 Citalopram Hydrobromide 20 Mg Tablet PO 20 mg DAILY CHRISTINE Administration Dextrose 12.5 gm 06/23/20 22:48 Dextrose 50% 25 Gm/50 Ml Syringe IV PUSH PRN PRN Hypoglycemia Protocol Diazepam 5 mg 06/23/20 22:40 Diazepam (*Crx) 5 Mg Tablet PO 07/23/20 22:41 TID PRN Muscle Spasm Enoxaparin Sodium 40 mg 06/24/20 09:00 07/02/20 08:35 Enoxaparin 40 Mg/0.4 Ml Syringe SUB-Q 40 mg DAILY CHRISTINE Administration Glucagon 1 mg 06/23/20 22:48 Glucagon For Inj 1 Mg Vial IM PRN PRN Hypoglycemia Protocol Glucose 15 gm 06/23/20 22:48 Glucose Oral Gel 15 Gm Of Glucse In 37.5 Gm Tube PO PRN PRN Hypoglycemia Protocol Hydralazine HCl 50 mg 06/24/20 09:00 07/02/20 08:35 Hydralazine Hcl 50 Mg Tablet PO 07/24/20 09:01 50 mg TID CHIRSTINE Administration Dextrose 1,000 mls @ 100 mls/hr 06/23/20 22:48 Dextrose 5% 1,000 Ml IVPB PRN PRN Hypoglycemia Protocol Insulin Glargine 20 units 06/27/20 18:00 07/01/20 18:03 Insulin Glargine (*Bkc) 100 Units/Ml SUB-Q 20 units QPM CHRISTINE Administration Lisinopril 20 mg 06/24/20 09:00 07/02/20 08:35 Lisinopril 20 Mg Tablet PO 20 mg DAILY CHRISTINE Administration Loperamide HCl 2 mg 06/27/20 12:24 Loperamide Hcl 2 Mg Capsule PO PRN PRN Diarrhea Magnesium Oxide 400 mg 06/24/20 09:00 07/02/20 08:34 Magnesium Oxide 400 Mg Tablet PO 400 mg DAILY CHRISTINE Administration Multivitamins Therapeutic 1 tablet 06/24/20 09:00 07/02/20 08:34 Multivitamins Therapeutic Tab (*Bkc) PO 07/24/20 09:01 1 tablet IAM
--- NOTE | 2020-07-03 15:46 | PM.DS ---
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 Arthritis 2. Renal insufficiency 3. Obesity at the time of admission she required assistance as follows. Eating Independent Oral Care substantial Toileting Hygiene substantial Upper Body Dressing substantial Lower Body Dressing dependent Donning/[place] Footwear dependent Rolling Left and Right partial assistance Sit to Lying partial assistance Lying to Sitting partial assistance Sit to Stand partial assistance Bed to Chair Transfers partial assistance Toilet Transfers partial assistance car transfer partial assistance Walking 10' partial assistance Walking 50' with Two Turns partial assistance Walking 150' unable Curb or Step partial assistance walking 10ft on uneven surfaces partial assistance 4 Steps partial assistance 12 Steps unable Picking Up Object substantial assistance [Wheelchair Mobility 50'] not applicable [Wheelchair Mobility 150'] not applicable GOALS: Eating [INDEPENDENT] Oral Care [INDEPENDENT] Toileting Hygiene [INDEPENDENT] Shower/Bathing [INDEPENDENT] Upper Body Dressing [INDEPENDENT] Lower Body Dressing [INDEPENDENT] Donning/[place] Footwear [INDEPENDENT] Rolling Left and Right [INDEPENDENT] Sit to Lying [INDEPENDENT] Lying to Sitting [INDEPENDENT] Sit to Stand [INDEPENDENT] Bed to Chair Transfers [INDEPENDENT] Toilet Transfers [INDEPENDENT] Car Transfers [INDEPENDENT] Walking 10' [INDEPENDENT] Walking 50' with Two Turns [INDEPENDENT] Walking 150' [INDEPENDENT] Curb or Step [INDEPENDENT] 4 Steps [INDEPENDENT] 12 Steps [INDEPENDENT] Picking Up Object [INDEPENDENT] [Wheelchair Mobility 50'] [INDEPENDENT] [Wheelchair Mobility 150'] [INDEPENDENT] DISCHARGE PERFORMANCE: Eating [INDEPENDENT] Oral Care [INDEPENDENT] Toileting Hygiene [INDEPENDENT] Shower/Bathing supervision Upper Body Dressing [INDEPENDENT] Lower Body Dressing [INDEPENDENT] Donning/[place] Footwear [INDEPENDENT] Rolling Left and Right [INDEPENDENT] Sit to Lying [INDEPENDENT] Lying to Sitting [INDEPENDENT] Sit to Stand [INDEPENDENT] Bed to Chair Transfers [INDEPENDENT] Toilet Transfers [INDEPENDENT] Car Transfers partial assistance Walking 10' [INDEPENDENT] Walking 50' with Two Turns [INDEPENDENT] Walking 150' [INDEPENDENT] Curb or Step [INDEPENDENT] 4 Steps [INDEPENDENT] 12 Steps [INDEPENDENT] Picking Up Object [INDEPENDENT] [Wheelchair Mobility 50'] not applicable [Wheelchair Mobility 150'] not applicable The patient had [no falls]. ty DS: Summary Time Spent with Patient Time attestation: Total time spent providing and/or coordinating discharge services: Exam Narrative: Exam Narrative: patient remained awake alert comfortable in no obvious distress ear nose throat examination normal with no running nose mucous membranes normal heart regular with no murmur lungs clear to auscultation with no crepitation rhonchi neuro examination unchanged she was discharged to her home with outpatient physical therapy during the entire hospitalization she had no falls or injuries and her condition definitely improved Discharge Plan Discharge Attending physician on discharge: Krzysztof Elizondo Discharging Clinician: Carroll Hutchinson Patient Disposition: Home, Self-Care Activity: no driving Diet: diabetic Discharge Instructions: Back brace on when up. Continue finger sticks as before. Patient Instructions: Antibiotic Form, Heart Failure (GEN), Pain Management in Older Adults (GEN), Basic Carbohydrate Counting (DC), Degenerative Disc Disease (GEN), Safe Use of Anticoagulants (GEN), Laminectomy (GEN) Stand Alone Forms: General Discharge Information Follow-
== END 2020-07-02 11:30 | disposition home or self-care (01) | DRG 560 ==
PROVIDERS: Admitting Provider Psychiatry & Neurology Neurology; PCP Family Medicine; Visit Provider Psychiatry & Neurology Neurology
DX: Z47.89 Encounter for other orthopedic aftercare (principal); I13.0 Hypertensive heart and chronic kidney disease with heart failure and stage 1 through stage 4 chronic kidney disease, or unspecified chronic kidney disease; M48.062 Spinal stenosis, lumbar region with neurogenic claudication; D64.9 Anemia, unspecified; E11.22 Type 2 diabetes mellitus with diabetic chronic kidney disease; F32.9 Major depressive disorder, single episode, unspecified; E78.5 Hyperlipidemia, unspecified; E66.9 Obesity, unspecified; G47.33 Obstructive sleep apnea (adult) (pediatric); I50.9 Heart failure, unspecified; K21.9 Gastro-esophageal reflux disease without esophagitis; M46.1 Sacroiliitis, not elsewhere classified; M51.16 Intervertebral disc disorders with radiculopathy, lumbar region; M71.38 Other bursal cyst, other site; N18.30 Chronic kidney disease, stage 3 unspecified; Z79.4 Long term (current) use of insulin; Z85.72 Personal history of non-Hodgkin lymphomas; Z92.3 Personal history of irradiation; Z85.3 Personal history of malignant neoplasm of breast; Z87.891 Personal history of nicotine dependence; Z23 Encounter for immunization
CPT/HCPCS: 36415; 80048; 83036; 85025; 97110; 97116; 97161; 97166; 97530; 97535; A9270; J1650; J1815